=== PATIENT | male | born 2005 | race Caucasian/White ===

== ENCOUNTER 2024-02-26 15:03 | Emergency (ER) | payer OTHER, SELFPAY ==
--- NOTE | 2024-02-26 | ECG_ITS ---
Test Reason : chest pain Blood Pressure : / mmHG Vent. Rate : 064 BPM Atrial Rate : 064 BPM P-R Int : 122 ms QRS Dur : 096 ms QT Int : 380 ms P-R-T Axes : 093 -04 026 degrees QTc Int : 392 ms Normal sinus rhythm Minimal voltage criteria for LVH, may be normal variant ( R in aVL ) Borderline ECG No previous ECGs available Referred By: Generic ED Physician Electronically Signed By:Harshal Briones
--- NOTE | ~2024-02-26 | XR_ITS ---
EXAMINATION: XR CHEST CLINICAL INFORMATION: Chest pain COMPARISON: None available. TECHNIQUE: 2 views of the chest were obtained. FINDINGS: No significant abnormality is noted involving the heart, lungs, mediastinum, bony thorax or soft tissues. XR/XR chest 2V IMPRESSION: Unremarkable examination.
[2024-02-26 15:12] VITALS: BP 141/91; PULSE 73; RESP 18; TEMP 36.6; O2SAT 98; BMI 44.1
--- NOTE | 2024-02-26 15:12 | ED_ITS ---
HPI - General Adult General Chief complaint: Chest Pain Stated complaint: Chest discomfort/High blood pressure Time Seen by Provider: 02/26/24 16:10 Source: patient and RN notes reviewed Mode of arrival: ambulatory Limitations: no limitations History of Present Illness ED Provider: Dawna Ng PA-C HPI narrative: This is a 19-year-old male, with no known medical problems, who presents emergency department complaints of intermittent chest pressure and elevated blood pressure the last several weeks. Patient states that the chest pressure occurs at random, and can last the entire day or for several minutes at a time. He states that the location of the chest pain varies depending on the day. He states that the pain is not a sharp pain, more like a ?pressure? Patient states that he has been under a lot of stress lately. He states that he recently relocated from [place] to [place] which required him to take multiple trips from [place] to [place]. He states that he was in the car for over 200 hours in last 3 weeks. He states he has episodes of palpitations. He has been monitoring his blood pressure as he went to the emergency room 2 months ago and was told he had high blood pressure. He states that the readings he is getting is about 140s over 90s. He denies any pleuritic chest pain, abdominal pain, nausea, vomiting or diarrhea. No fevers or chills. Denies history of blood clots. No hospitalizations or surgeries. He states that he was having an episode of chest pressure while in the emergency room however states that this has resolved. He states that his family has a cardiac history however denies any cardiac history at a young age. He denies any other complaints or concerns at this time. MD complaint: Chest pain, palpitations, elevated blood pressure Onset (ago): week(s) Radiation: non-radiation Relieving factors: none Exacerbating factors: none Associated symptoms: chest pain Treatments prior to arrival: none Related Data Allergies Allergy/AdvReac Type Severity Reaction Status Date / Time No Known Allergies Allergy Verified 02/26/24 15:14 Review of Systems 2 Review of Systems: Yes all other systems are reviewed and are negative Constitutional: Constitutional: Reports as per [facility] Social History Social History Advance Directives: No Advance Directives Information Provided: No Do you have a plan to hurt others: No Plan Physical Exam ED Vital Signs: Vital Signs - 24 hr 02/26/24 15:12 Temperature 97.8 F Pulse Rate 73 Respiratory Rate 18 Blood Pressure 141/91 H Pulse Oximetry 98 Oxygen Delivery Method Room Air BMI result Body Mass Index 44.1 Const General: cooperative, comfortable and no acute distress Orientation/consciousness: patient oriented x3 Limitations: no limitations HENMT Head: Yes normal to inspection, Yes normocephalic and Yes atraumatic Ears: hearing grossly normal bilaterally General nose exam: Normal external nose present Face and sinus: Yes normal facial exam Mouth: Normal oral and palatal mucosa present, oropharynx normal and moist mucous membranes Throat: Yes posterior oropharynx normal Eyes General: appearance normal, both eyes and all related structures Eyelids: Yes eyelids normal Conjunctivae: conjunctivae normal Sclerae: sclerae normal Pupils: Equal, round and reactive pupils present EOM: EOMs intact bilaterally Neck Neck: Yes normal visual inspection, Yes full ROM and Yes no lymphadenopathy Lymphatic: no lymphadenopathy noted Chest Other: No anterior chest wall tenderness. Chest palpation & inspection: normal inspection of the chest Resp Effort & Inspection: normal respiratory effort and able to speak in complete sentences Auscultation: clear to auscultation bilaterally, no crackles, no rales, no rhonchi and no wheezes Cardio Rate: regular rate Rhythm: regular rhythm Heart sounds: S1 normal heart sound present and S2 normal heart sound present GI Inspection: Yes normal to inspection Skin General skin exam: no rashes or lesions noted Trauma: no lacerations or abrasions Wounds: no wounds Neuro General: patient oriented x3 and moves all extremities Cranial nerves: Yes Equal, round and reactive pupils present Extrem General: Yes normal to inspection Right upper extremity: normal to inspection Left upper extremity: normal to inspection Right lower extremity: normal to inspection Left lower extremity: normal to inspection Course Course Course Narrative: RME performed by Laura Chauhan PA-C. Patient is a 19 year old assigned male at presenting to the emergency department with chest pain and concerns about his blood pressure. Patient states he has been checking his blood pressure at home and it has been high, will an irregular heart beat, and chest pain. Detailed physical exam and review of systems are deferred to the primary grade teacher. EKG, labs, imaging, and swabs ordered. Patient placed back in the waiting room pending room availability and results. Reevaluation(s) Reevaluation #1: D-dimer negative, negative for flu, RSV, COVID, chemistry within normal limits. CBC without any abnormalities. EKG normal sinus rhythm, chest x-ray unremarkable. Workup today was reassuring. ACS is unlikely. Likely anxiety causing him to have the symptoms. Discussed findings with patient. He understands and agrees with plan. Given referral to Cardiology as well as [facility] for further evaluation and management of the symptoms. He understands return precautions. Patient stable for discharge. Time: 18:02 Medical Decision Making Medical Decision Making [facility] Narrative: This is a 19-year-old male who presents emergency department with complaints of chest pain, palpitations for the last several weeks. On arrival, patient mildly hypertensive at 141/91, otherwise all vital signs within normal limits. He is speaking full sentences under no acute distress. Lungs are clear to auscultation bilaterally. Anterior chest wall without any tenderness on palpation. Patient has a heart score 0. Differential diagnoses include ACS- unlikely, costochondritis, a viral-like illness, pneumothorax-unlikely, pulmonary embolism. Given that he has traveled significant distances over the last several weeks and did not have this pain until recent, will obtain D-dimer to rule out PE as my suspicions are low. He has no other risk factors. Plan: Labs, EKG, chest x-ray, viral swabs Differential Diagnosis Differential Diagnoses: The differential diagnosis associated with the presentation includes See above Admission/Observation Consideration of admission/observation: Escalation of care including admission/observation considered Escalation of care including admission/observation considered however given workup today not warranted at this time. Lab Data [facility] Lab Attestation statement: I reviewed the patient's lab results. No leukocytosis, stable H&H, chemistry within normal limits. Troponin less than 2.7- does not need repeat as symptoms have been ongoing for the last 2 weeks. Viral swabs negative. D-dimer negative. 02/26/24 15:32 02/26/24 15:32 Labs: Lab Results 02/26/24 02/26/24 Range/Units 15:32 17:00 WBC 9.0 (4.8-10.8) X10*3/uL RBC 5.15 (4.60-5.80) X10*6/uL Hgb 15.1 (14.0-18.0) g/dl Hct 42.1 (42.0-52.0) % MCV 81.7 (80.0-98.0) fL MCH 29.3 (27.0-33.0) pg MCHC 35.9 (31.0-36.0) g/dl RDW 12.4 (11.0-16.0) % Plt Count 258 (160-400) X10*3/uL MPV 10.0 (9.4-12.4) fL Immature Gran % (Auto) 0.3 (0.0-0.4) % Neut % (Auto) 58.2 (45-73) % Lymph % (Auto) 34.1 (20-40) % Gooding % (Auto) 6.2 (2-11) % Eos % (Auto) 1.0 (0-4) % Baso % (Auto) 0.2 (0-2) % Lymph # (Auto) 3.1 (1.2-4.9) X10*3/uL Gooding # (Auto) 0.6 (0.1-1.2) X10*3/uL Eos # (Auto) 0.1 (0.0-0.4) X10*3/uL Baso # (Auto) 0.0 (0.0-0.2) X10*3/uL Abs Immat Gran (auto) 0.03 (0.00-0.03) X10*3/uL Absolute Neuts (auto) 5.2 (2.0-8.3) x10*3/uL Absolute Nucleated RBC 0.000 (0.0-0.012) X10*3/uL Nucleated RBC % (auto) 0.0 (0.0-0.2) /100WBC D-Dimer High Sensitivty < 150 NG/ML Sodium 143 (135-145) mmol/L Potassium 3.8 (3.3-5.1) mmol/L Chloride 108 (96-108) mmol/L Carbon Dioxide 26 (22-29) mmol/L Anion Gap 13 (12-20) BUN 10 (9-16) mg/dL Creatinine 0.75 (0.5-1.4) mg/dL Estim Creat Clear Calc 232.6 Estimated GFR > 60 Random Glucose 114 (60-115) mg/dL Calcium 10.0 (8.4-10.2) mg/dL Magnesium 1.9 (1.6-2.6) mg/dL Total Bilirubin 0.5 (0.0-1.0) mg/dL AST 22 (5-37) U/L ALT 38 (0-40) U/L Alkaline Phosphatase 75 (39-117) U/L Troponin I High Sens < 2.7 (<3.5-35.0) ng/L Total Protein 7.1 (6.5-8.0) g/dL Albumin 4.3 (3.5-5.0) g/dL TSH 1.00 (0.32-4.0) uIU/mL Influenza Type A (PCR) NEGATIVE (Negative) Influenza Type B (PCR) NEGATIVE (Negative) RSV RNA Qual (PCR) NEGATIVE (Negative) SARS-CoV-2 RNA (RT-PCR) NEGATIVE (Negative) Independent Interpretation I performed an independent interpretation of an: EKG Interpretation: Normal sinus rhythm at a ventricular rate of 64 beats per minute, NC interval 122, QT QTC 380/392. No ST elevation or depression. Radiology Impression Discussion of test interpretation with radiology: I have reviewed the radiologist's reading. Radiologist Impression: EXAMINATION: XR CHEST CLINICAL INFORMATION: Chest pain COMPARISON: None available. TECHNIQUE: 2 views of the chest were obtained. FINDINGS: No significant abnormality is noted involving the heart, lungs, mediastinum, bony thorax or soft tissues. XR/XR chest 2V IMPRESSION: Unremarkable examination. Dictated By: Yanely Garcia MD Discharge Plan Discharge Clinical Impression: Chest pain Patient Disposition: Home, Self-Care Instructions: Chest Pain (ED) Additional Instructions: You were seen in the emergency department due to chest pain. Your workup today was normal. Your EKG was reassuring. Your chest x-ray did not show any abnormalities. It is unclear what is causing your chest pain however today's workup was reassuring. You tested negative for flu, RSV, and COVID. You may continue monitoring your blood pressure at home. Ensure that you are doing this when your calm and relaxed with her feet on the floor with back support. You can follow-up with Cardiology, call to make an appointment. You may also follow-up with the [facility] for primary care. If any new or worsening symptoms occur including but not limited to severe chest pain, shortness breath, palpitations, dizziness, lightheadedness, please return for re-evaluation. Referrals: [facility]Provider Group] [facility] [Physician] - Print Language: Czech
[2024-02-26 15:37] LABS: MANUAL DIFF FLAG NO
[2024-02-26 15:44] LABS: Basophils Percent Auto 0.2 % (0-2); Eosinophils Absolute Auto 0.1 X10*3/uL (0.0-0.4); Hematocrit 42.1 % (42.0-52.0); Hemoglobin 15.1 g/dl (14.0-18.0); Imm Gran Abs Auto 0.03 X10*3/uL (0.00-0.03); Imm Gran Pct Auto 0.3 % (0.0-0.4); Lymphocytes Absolute Auto 3.1 X10*3/uL (1.2-4.9); Lymphocytes Percent Auto 34.1 % (20-40); Mean Corpuscular HGB Conc 35.9 g/dl (31.0-36.0); Mean Corpuscular Hemoglobin 29.3 pg (27.0-33.0); Mean Corpuscular Volume 81.7 fL (80.0-98.0); Monocytes Absolute Auto 0.6 X10*3/uL (0.1-1.2); Monocytes Percent Auto 6.2 % (2-11); Neutrophils Absolute Auto 5.2 x10*3/uL (2.0-8.3); Neutrophils Percent Auto 58.2 % (45-73); Platelet Count 258 X10*3/uL (160-400); Red Blood Count 5.15 X10*6/uL (4.60-5.80); Red Cell Distribution Width 12.4 % (11.0-16.0)
--- NOTE | 2024-02-26 15:48 | MHC.EDTECH ---
Patient ekg taken and was read by Provider ,blood drawn and rsv/covid swab all sent to lab .
[2024-02-26 15:52] LABS: Alanine Aminotransferase 38 U/L (0-40); Albumin Level 4.3 g/dL (3.5-5.0); Alkaline Phosphatase 75 U/L (39-117); Anion Gap 13 (12-20); Aspartate Amino Transferase 22 U/L (5-37); Bilirubin Total 0.5 mg/dL (0.0-1.0); Blood Urea Nitrogen 10 mg/dL (9-16); Carbon Dioxide 26 mmol/L (22-29); Chloride 108 mmol/L (96-108); Creatinine Clr Calc Pharmacy 232.6; Estimated Glomerular Filt Rate > 60; Glucose Random 114 mg/dL (60-115); Magnesium 1.9 mg/dL (1.6-2.6); Potassium 3.8 mmol/L (3.3-5.1); Sodium 143 mmol/L (135-145); Total Protein 7.1 g/dL (6.5-8.0)
[2024-02-26 15:59] LABS: Troponin-I High Sensitivity < 2.7 ng/L (<3.5-35.0)
[2024-02-26 16:17] LABS: Influenza A PCR NEGATIVE (Negative); Influenza B PCR NEGATIVE (Negative); Resp Syncy Virus RNA Qual PCR NEGATIVE (Negative); SARS COV2 PCR INHOUSE NEGATIVE (Negative)
[2024-02-26 17:31] LABS: D Dimer High Sensitivity < 150 NG/ML
[2024-02-26 18:21] VITALS: BP 131/50; PULSE 50; RESP 13; TEMP 36.7; O2SAT 99
[2024-02-26 18:36] VITALS: BP 154/84; PULSE 74; RESP 16; TEMP 37; O2SAT 99
== END 2024-02-26 18:37 | disposition home or self-care (01) ==
PROVIDERS: Physician Assistant Medical; Emergency Provider Emergency Medicine
DX: R07.89 Other chest pain (principal); R00.2 Palpitations; Z79.899 Other long term (current) drug therapy; Z03.818 Encounter for observation for suspected exposure to other biological agents ruled out
CPT/HCPCS: 0241U; 36415; 71046; 80053; 83735; 84443; 84484; 85025; 85379; 93005; 99283; 99284

== ENCOUNTER → 2024-02-26 15:05 | Outpatient (BNV) | payer OTHER, SELFPAY | PROVIDERS: Emergency Provider Emergency Medicine; Visit Provider Internal Medicine Cardiovascular Disease | DX: R07.9 Chest pain, unspecified (principal) | CPT/HCPCS: 93010 ==

== ENCOUNTER 2024-03-31 14:45 | Outpatient (AMB) | payer MEDICAID, SELFPAY ==
[2024-03-31 14:57] VITALS: BP 138/68; PULSE 81; BMI 44.8
--- NOTE | 2024-03-31 14:57 | MHC.OFFVIS ---
Vital Signs 03/31/24 14:57 Height 6 ft Weight 330 lb 11.094 oz BMI 44.8 BP 138/68 Blood Pressure Location Lt brachial Position Sitting Pulse 81 Pulse Source Pulse Oximeter Intake Visit Reasons: Chest discomfort/High blood pressure/[facility]/02-25 Allergies No Known Allergies Allergy (Verified 03/31/24 15:13) Medication List - Last Reconciled 03/31/24 by Mile Summers NP No Known Home Meds HPI Comments Details: 19-year-old male presents today for a new patient visit. He had recently moved from [place] to [place]. He was having some intermittent chest pains at rest and noticed his blood pressure was high so he went to the ED on 02/26/2024. He states when he was in [place] he was giving HTN medications but those ran out. He has not noticed any chest pains with exertion and he has some shortness of breath on exertion. He informs he has been told his heart beat is irregular and his heart pounds when he goes up stairs. He does not drink alcohol, he is trying to quit smoking and has cut back. He vapes and uses marijuana. He drinks caffeine a few times a week and has been trying to lose weight. He has a history of asthma. But, he has a large family history of cardiac issues and is concerned related to that. [facility] Medical History Shortness of breath Palpitations Acid reflux Active asthma Family History Maternal Grandfather H/O heart surgery Diabetes Stroke Father Heart rate fast Maternal Grandmother Diabetes Obesity Maternal Grandmother Stroke Social History Alcohol intake: never Patient Tobacco Use Status: Current everyday Tobacco user Smoking Start Date: 05/12/14 Tobacco use type: Pipe e-Cigarette/Vaping Use: Currently Using Substance Use Type: Marijuana Review of Systems Const Denies weakness ENT Denies dizziness Card Denies chest pain, Denies chest pain with activity, Denies syncope, Denies rapid heart rate, Denies pedal edema, Denies edema, Denies leg edema, Denies lightheadedness, Denies palpitations, Denies dyspnea, Denies dyspnea on exertion and Denies orthopnea Resp Denies cough, Denies dyspnea and Denies dyspnea on exertion GI Denies hematochezia and Denies change in stool character Musc Denies abnormal gait, Denies muscle cramps, Denies muscle weakness, Denies numbness, Denies radiating pain into limb and Denies tingling Neuro Denies abnormal gait, Denies dizziness, Denies syncope, Denies numbness, Denies tingling and Denies weakness Endo Denies palpitations Physical Exam Vital Signs: Last Vital Signs Pulse 81 03/31/24 14:57 BP 138/68 03/31/24 14:57 BMI result Body Mass Index 44.8 Assessment & Plan Assessment & Plan (1) Palpitations: Code(s): R00.2 - Palpitations Category: Medical (2) Shortness of breath: Code(s): R06.02 - Shortness of breath Category: Medical (3) Chest pain: Code(s): R07.9 - Chest pain, unspecified Category: Medical Plan Will get exercise stress test to asses chest pains and exercise induced arrhythmias. Hotler to assess for arrhythmias. and Echocardiogram to assess for structural changes. Advised avoiance of caffeine, stress mitigation techniques discussed, and weight loss discussed. Patient agrees to plan of care. Orders: Orders CA stress test 03/31/24 R07.9 - Chest pain, unspecified ECG holter monitor 48 hour 03/31/24 R00.2 - Palpitations, R06.02 - Shortness of breath, R07.9 - Chest pain, unspecified CA echo transthoracic complete 03/31/24 R06.02 - Shortness of breath Coding Level of Care Code New Pt Level 4 (28701) Diagnoses Palpitations R00.2 Shortness of breath R06.02 Chest pain R07.9
== END 2024-03-31 15:50 | disposition home or self-care (01) ==
PROVIDERS: Visit Provider Nurse Practitioner
DX: R00.2 Palpitations (principal); R06.02 Shortness of breath; R07.9 Chest pain, unspecified
CPT/HCPCS: 99204

== ENCOUNTER → 2024-03-31 14:45 | Outpatient (BNVA) | payer MEDICAID, SELFPAY | PROVIDERS: Visit Provider Nurse Practitioner | DX: R07.9 Chest pain, unspecified (principal); R06.02 Shortness of breath; R00.2 Palpitations; I10 Essential (primary) hypertension | CPT/HCPCS: 99212 ==

== ENCOUNTER → 2024-04-19 08:37 | Outpatient (REF) | payer MEDICAID, SELFPAY ==
--- NOTE | 2024-04-19 08:41 | CA_ITS ---
Transthoracic Echocardiogram Patient (Last, First, Middle): Pamela Graham M Gender: Male Date of : 2005 Age: 19 Procedure Date: 04/19/2024 Procedure Type: Transthoracic Echocardiogram Location: OP Height: 182.88 cm Weight: 136.08 kg BSA: 2.53 m2 Heart Rate: bpm BP: 110 / 78 mmHg Sales Review Clerk: TO Referring MD: Mile Summers MANAGER BUSINESS OPERATIONS Symptoms: R06.02 - Shortness of breath Study Quality: Adequate w contrast ECG Rhythm: Sinus Conclusions: - The left ventricular systolic function is normal. The calculated ejection fraction is 58% by biplane method. - No obvious valvular pathology seen on this study. Findings Procedure Information Contrast agent, definity, is being given per protocol without apparent complications. Left Ventricle Normal left ventricular cavity size. There is normal left ventricular wall thickness. The left ventricular systolic function is normal. The calculated ejection fraction is 58% by biplane method. There is no evidence of regional wall motion abnormalities. Diastolic function is normal for age. Right Ventricle Mildly increased right ventricular cavity size. There is normal right ventricular systolic function. Atria Both atria are normal in size. Aortic Valve There is a normal trileaflet aortic valve. There is no aortic valve stenosis. There is no aortic valve regurgitation. Mitral Valve The mitral valve appears normal. There is no mitral valve regurgitation. There is no mitral valve stenosis. Pulmonic Valve There is trace pulmonic valve regurgitation. Tricuspid Valve Normal tricuspid valve structure. There is trace tricuspid valve regurgitation. There is no evidence of pulmonary hypertension. Great Vessels The asc aorta is normal in size. Venous The inferior vena cava was not well visualized. The inferior vena cava is normal in size. Pericardium/Pleural There is no evidence of pericardial effusion. Prior Study Comparison No prior study available for comparison. Recommendations, Care & Conclusions No obvious valvular pathology seen on this study. Measurements 2D Linear Measurements IVSd: 0.90 0.6-0.9/0.6-1.0 cm LVIDd: 5.12 3.9-5.3/4.2-5.9 cm LVIDd Index: 2.02 2.4-3.2/2.2-3.1 cm/m2 LVIDs: 3.48 2.0-3.6 cm LVPWd: 1.02 0.7-1.1 cm LA Diam: 4.10 2.7-3.8/3.0-4.0 cm LAIDs Index: 1.62 1.5-2.3 cm/m2 LV Mass: 222.82 67-162/88-224 g LV Mass Index: 88.07 43-95/49-115 g/m2 LVOT Diam: 2.40 3.0+(-)1.3 cm 2D Systolic Function EF 4C: 57.20 >55% EF 2C: 59.70 >55% EF BiP: 58.10 >55% Mitral Valve MV Pk E: 0.87 MV PK A: 0.26 MV Decel Time: 220.00 E/A: 3.40 E'Lateral: 16.60 E'Medial: 11.90 E/E' Med: 7.30 E/E' Lat: 5.20 PHT: 64.00 MVA PHT: 3.44 [place]: 3.96 Aortic Valve AoV Pk Rosendo: 1.46 AoV Mn Rosendo: 1.02 AoV VTI: 0.31 AoV Pk Grad: 9.00 Aov Mn Grad: 5.00 MARIO Cont.VTI: 3.40 LVOT LVOT Pk Rosendo: 0.98 LVOT Mn Rosendo: 0.62 LVOT VTI: 0.23 LVOT Pk Grad: 4.00 LVOT Mn Grad: 2.00 LVOT Diam: 2.40 LVOT Area: 4.52 Diastolic Function MV Pk E: 0.87 MV Pk A: 0.26 E/A: 3.40 E'Medial: 11.90 E/E' Med: 7.30 E' Laterial: 16.60 E/E' Lat: 5.20 Right Ventricle TAPSE (mm): 22.60 TVS' Rosendo: 12.60 Tricuspid Valve RA Press: 3.00 Great Vessels Aorta Sinus of Valsalva: 3.11 2.0-3.[address] [place]: 2.16 1.7-3.4 cm Ao Asc: 2.80 2.1-3.4 cm Updated in Other Vendor System with Status of Final Luigi Bass MD electronically signed on 04/21/2024 12:07:33 PM with status of Final
--- NOTE | 2024-04-19 08:41 | HM_ITS ---
* Total monitoring time 2 days. * Underlying rhythm is sinus with an average rate of 76/Min. * Rare supraventricular and ventricular ectopy. * No significant arrhythmias. * No significant pauses or AV blocks. * Patient marker used once in association with sinus rhythm. * No diary events. MTDD
--- NOTE | 2024-04-19 08:41 | CA_ITS ---
Acquisition Time: 2024-04-19 10:31:08 Total Exercise Time: 00:06:41 Test Indications: CP ELEVATED B/P Medications: NONE Protocol: GUILLERMO Max HR: 173 BPM 86% of Pred: 199 BPM Max BP: 194/070 mmHG Max Work Load: 8.0 METS Exercise stress test exercise 6 min 41 sec of Guillermo protocol achieving 86% MPHR, with mild to moderate SOB, no chest discomfort, without arrhythmias, with HTN response to exercise, without EKG changes. Breathing returned to baseline with rest. Test reviewed with Dr. Bass. Referred By: Mile Summers Overread By: Mile Summers
== END ==
LOC: HO.CARD 08:37
PROVIDERS: Visit Provider Internal Medicine
DX: R07.9 Chest pain, unspecified (principal); R00.2 Palpitations; R06.02 Shortness of breath
CPT/HCPCS: 93017; 93225; 93306; Q9957

== ENCOUNTER → 2024-04-19 08:41 | Outpatient (BNV) | payer MEDICAID, SELFPAY | PROVIDERS: Visit Provider Nurse Practitioner | DX: I49.3 Ventricular premature depolarization (principal) | CPT/HCPCS: 93016; 93018; 93227; 93350; 93352 ==

== ENCOUNTER 2024-04-26 11:11 | Outpatient (REF) | payer MEDICAID, SELFPAY ==
[2024-04-26 12:41] LABS: Anion Gap 10 (12-20); Blood Urea Nitrogen 17 mg/dL (9-16); Calcium 9.6 mg/dL (8.4-10.2); Carbon Dioxide 30 mmol/L (22-29); Chloride 104 mmol/L (96-108); Estimated Glomerular Filt Rate > 60; Glucose Random 96 mg/dL (60-115); Sodium 140 mmol/L (135-145)
== END 2024-04-26 11:12 | disposition home or self-care (01) ==
LOC: HO.LAB 11:11
PROVIDERS: Visit Provider Nurse Practitioner
DX: I10 Essential (primary) hypertension (principal)
CPT/HCPCS: 36415; 80048

== ENCOUNTER → 2024-04-27 10:08 | Outpatient (BNVA) | payer MEDICAID, SELFPAY | PROVIDERS: Visit Provider Nurse Practitioner | DX: Z01.89 Encounter for other specified special examinations (principal) ==

== ENCOUNTER 2024-09-05 13:51 | Outpatient (AMB) | payer MEDICAID, SELFPAY ==
[2024-09-05 13:52] VITALS: BP 130/70; PULSE 77; BMI 49.8
--- NOTE | 2024-09-05 13:52 | MHC.OFFVIS ---
Vital Signs 09/05/24 13:52 Height 6 ft Weight 367 lb 4.642 oz BMI 49.8 BP 130/70 Blood Pressure Location Lt brachial Position Sitting Pulse 77 Pulse Source Pulse Oximeter Intake Visit Reasons: 2m follow up Intake Note: 2 mth f/up Special Education Coordinator Required: No Accompanied by: Self / Same As Patient Allergies No Known Allergies Allergy (Verified 03/31/24 15:13) Medication List - Last Reconciled 09/05/24 by VITA Flores HPI HPI 2m follow up: Details: Pamela is a 19-year-old male with past medical history of morbid obesity, asthma, smoking/ vaping who was recently evaluated for heart palpitations, shortness of breath and chest discomfort and now presents for follow-up. Today he reports that he has been feeling better overall. He tells me that he has a new job and is on his feet a lot of the day. It is keeping him active and he has not been having as many symptoms. He does have shortness of breath with exertion which he relates to his asthma. He continues to smoke and is working on cutting down. No reports of chest discomfort. He will feel an occasional skip or rapid heartbeat in his chest. No dizziness, presyncope, syncope, falls. He has not taken chlorthalidone in the last 2 months. He said he ran out and did not have refills. He does not have a PCP as of yet. He is on a wait list for the [facility]. [facility] Medical History Hypertension Shortness of breath Palpitations Acid reflux Active asthma Family History Maternal Grandfather H/O heart surgery Diabetes Stroke Father Heart rate fast Maternal Grandmother Diabetes Obesity Maternal Grandmother Stroke Social History Alcohol intake: never Patient Tobacco Use Status: Current everyday Tobacco user Smoking Start Date: 05/12/14 Tobacco use type: Pipe e-Cigarette/Vaping Use: Currently Using Substance Use Type: Marijuana Review of Systems Const All systems reviewed & are unremarkable except as noted in HPI and below Denies chills, Denies fatigue, Denies fever(s), Denies frequent falls, Denies weakness, Denies weight gain and Denies weight loss ENT Denies dizziness Card Denies chest pain, Denies leg edema, Denies lightheadedness, Denies palpitations, Denies dyspnea and Denies dyspnea on exertion Resp Denies cough, Denies dyspnea and Denies dyspnea on exertion GI Denies hematochezia Musc Denies abnormal gait, Denies muscle weakness, Denies numbness, Denies radiating pain into limb and Denies tingling Neuro Denies abnormal gait, Denies dizziness, Denies frequent falls, Denies numbness, Denies tingling and Denies weakness Endo Denies fatigue and Denies palpitations Physical Exam Vital Signs: Last Vital Signs Pulse 77 09/05/24 13:52 BP 130/70 09/05/24 13:52 BMI result Body Mass Index 49.8 Const General: cooperative, healthy appearing, comfortable and no acute distress Orientation/consciousness: patient oriented x3 Neck Neck: Yes normal visual inspection and Yes no JVD Resp Effort & Inspection: normal respiratory effort Auscultation: clear to auscultation bilaterally, no crackles, no rales, no rhonchi and no wheezes Cardio Jugular venous distension: no JVD Rate: regular rate Rhythm: regular rhythm Heart sounds: S1 normal heart sound present, S2 normal heart sound present, no murmurs and no rubs Neuro General: patient oriented x3 Extrem General: Yes normal to inspection and No no pedal edema Psych Appearance: grossly normal Mental Status: mental status grossly normal Speech and movement: Normal speech and movement present Assessment & Plan Assessment & Plan (1) Hypertension: Code(s): I10 - Essential (primary) hypertension Category: Medical Plan: Reported history of hypertension. He had been living in [place] then moved up to this area last spring. He was seen in the emergency room on 02/26/2024 for chest discomfort and heart palpitations. He ruled out for ACS. His blood pressure was mildly elevated, 141/91. It seems he was then put on chlorthalidone but he tells me he has not taken it in the last 2 months because he ran out. His blood pressure is in the normal range today. He has not had recent issues with chest discomfort. An echocardiogram was done on 04/19/2024 which showed EF 58%, normal LV wall thickness, no valve abnormalities or regional wall motion abnormalities. Discussed borderline hypertension with him. He would benefit from weight loss, reducing the salt in his diet and increasing his physical activity as well as smoking cessation. He states understanding and will work on these things. He is working on getting a PCP. Instructed on periodic home blood pressure checks if he has any concerning readings he can notify this office or seek emergency medical care. Cardiology follow-up here will be p.r.n.. (2) Shortness of breath: Code(s): R06.02 - Shortness of breath Category: Medical Plan: Reports of shortness of breath with activity. Patient is morbidly obese and has a history of asthma and smokes/vapes -each of which can contribute to this symptom. He did have an exercise stress test on 04/19/2024 with exercise 6 minutes 41 seconds with moderate shortness of breath and no EKG changes of ischemia. His echocardiogram as above showed normal EF. No clear cardiac findings to explain his symptom. Again discussed weight loss, smoking cessation. (3) Palpitations: Code(s): R00.2 - Palpitations Category: Medical Plan: Prior reports of heart palpitations. Holter monitor done 04/19/2024 for 2 days shows sinus rhythm with average heart rate 76, rare SVE and ve. Test results reviewed with him in detail. Reviewed the reduction in caffeinated beverages and maintaining good hydration. Plan Time spent on chart review, documentation, interview and assessment Coding Level of Care Code Est Pt Level 3 (24026) Complex EM visit Add On G2211 Diagnoses Hypertension I10 Shortness of breath R06.02 Palpitations R00.2 Time Spent (min) 24
== END 2024-09-05 14:14 | disposition home or self-care (01) ==
PROVIDERS: Visit Provider Nurse Practitioner Family
DX: I10 Essential (primary) hypertension (principal); R06.02 Shortness of breath; R00.2 Palpitations
CPT/HCPCS: 99213

== ENCOUNTER → 2024-09-05 13:51 | Outpatient (BNVA) | payer MEDICAID, SELFPAY | PROVIDERS: Visit Provider Nurse Practitioner Family | DX: R00.2 Palpitations (principal); R06.02 Shortness of breath; I10 Essential (primary) hypertension; F17.290 Nicotine dependence, other tobacco product, uncomplicated; U07.0 Vaping-related disorder | CPT/HCPCS: 99212 ==